=== PATIENT | female | born 1945 | race Caucasian/White ===

== ENCOUNTER 2023-06-07 07:37 | Observation (INO) ==
[2023-06-07 08:05] LABS: ABS Basophils 0.1 10^3/uL (0.0-0.1); ABS Lymphocytes 1.2 10^3/uL (1.0-4.8); ABS Monocytes 0.7 10^3/uL (0.0-0.9); ABS Neutrophils 8.5 10^3/uL (1.5-7.6); ABS Nucleated RBC 0.01 10^3/ul; Eosinophil % 0.1 %; Hemoglobin 16.1 g/dL (11.5-14.3); Mean Corpuscular Hemoglobin 31.7 pg (27-33); Mean Corpuscular Hgb Conc 34.2 g/dL (31-36); Mean Corpuscular Volume 92.7 fL (80-97); Mean Platelet Volume 9.7 fL (7.5-11.2); Platelet Count 319 10^3/uL (150-450); Red Blood Count 5.08 10^6/uL (3.63-4.92); Red Cell Distribution Width 13.3 % (12-17); White Blood Count 10.5 10^3/uL (3.8-11.8)
[2023-06-07] MEDS: methylPREDNISolone SOD SUCC 40 mg/ml 1 ml VIAL IV ONE (08:09)
[2023-06-07 08:24] LABS: Albumin 3.9 g/dL (3.2-5.2); Albumin/Globulin Ratio 1.1 (1-3); C Reactive Protein 3.88 mg/L (<8.01); Calcium 9.6 mg/dL (8.6-10.3); Creatinine, Serum 1.06 mg/dL (0.51-0.95); Globulin 3.6 g/dL (2-4); Potassium 3.7 mmol/L (3.5-5.0); Total Bilirubin 0.5 mg/dL (0.2-1.0); Total Protein 7.5 g/dL (6.4-8.9); eGFR CKD-EPI 54.4 (>60)
[2023-06-07] MEDS: Albuterol/Ipratropium NEB.SOL (2.5/0.5 MG) 3 ML NEB.SOLN INH ONE ×4 (08:45→10:39)
[2023-06-07 10:13] LABS: High Sensitivity Troponin 1 Hr 10 pg/mL (<15)
[2023-06-07] MEDS ORDERED: Albuterol/Ipratropium NEB.SOL (2.5/0.5 MG) 3 ML NEB.SOLN INH PRN (11:33)
[2023-06-07] MEDS: cefTRIAXone 1 gm/50 mL D5W 1 GM/50 ML BAG IV ONE (11:40)
[2023-06-07] MEDS ORDERED: Enoxaparin 30 MG/0.3 ML SYR SUBCUT SCH (12:30)
[2023-06-07] MEDS: Azithromycin 500 mg/250 ml NS 500 MG/250 ML BAG IVPB ONE (12:43)
[2023-06-07] MEDS: Enoxaparin 30 MG/0.3 ML SYR SUBCUT SCH (12:44)
[2023-06-07] MEDS: methylPREDNISolone SOD SUCC 125 mg 2 ML VIAL IV ONE (12:44)
[2023-06-07] MEDS: Albuterol/Ipratropium NEB.SOL (2.5/0.5 MG) 3 ML NEB.SOLN INH SCH (15:10)
[2023-06-07] MEDS: methylPREDNISolone SOD SUCC 40 mg/ml 1 ml VIAL IV SCH (20:44)
[2023-06-08] MEDS: Nicotine PATCH 21 MG/24 HR PATCH TRANSDERM SCH (08:09)
[2023-06-08 09:39] VITALS: BP 120/70
[2023-06-08] MEDS: SPIRIVA Respimat (tiotropium) 2.5 mcg/inh Inhaler INH SCH (09:45)
[2023-06-08] MEDS ORDERED: cefTRIAXone 1 gm/50 mL D5W 1 GM/50 ML BAG IV SCH ×2 (11:30)
[2023-06-08] MEDS ORDERED: Azithromycin 500 mg/250 ml NS 500 MG/250 ML BAG IVPB SCH ×2 (12:00)
== END 2023-06-08 12:30 | disposition home or self-care (01) ==
LOC: EDHOLD 07:37 → ED 07:37 → MED 20:34
PROVIDERS: ADMIT Hospitalist; ATTEND Hospitalist

== ENCOUNTER 2024-01-24 22:20 | Inpatient (IN) ==
[2024-01-24 23:15] LABS: ABS Basophils 0.1 10^3/uL (0.0-0.1); ABS Eosinophils 0.1 10^3/uL (0.0-0.5); ABS Lymphocytes 1.1 10^3/uL (1.0-4.8); ABS Monocytes 1.1 10^3/uL (0.0-0.9); ABS Neutrophils 8.1 10^3/uL (1.5-7.6); ABS Nucleated RBC 0.01 10^3/ul; Eosinophil % 0.8 %; Hematocrit 31.6 % (35-45); Hemoglobin 10.6 g/dL (11.5-14.3); Lymphocyte % 10.9 %; Mean Corpuscular Hemoglobin 32.5 pg (27-33); Mean Corpuscular Hgb Conc 33.6 g/dL (31-36); Mean Corpuscular Volume 96.9 fL (80-97); Nucleated Red Blood Cells % 0.1 %/100WBC (0.0-0.8); Platelet Count 427 10^3/uL (150-450); Red Blood Count 3.26 10^6/uL (3.63-4.92); Red Cell Distribution Width 15.2 % (12-17); White Blood Count 10.5 10^3/uL (3.8-11.8)
[2024-01-25 00:27] LABS: Albumin 3.5 g/dL (3.2-5.2); Albumin/Globulin Ratio 1.2 (1-3); C Reactive Protein 16.5 mg/L (<8.01); Calcium 9.1 mg/dL (8.6-10.3); Creatinine, Serum 1.03 mg/dL (0.51-0.95); Potassium 3.5 mmol/L (3.5-5.0); Total Bilirubin 0.5 mg/dL (0.2-1.0); Total Protein 6.5 g/dL (6.4-8.9)
[2024-01-25 00:52] LABS: High Sensitivity Troponin 1 Hr 18 pg/mL (<15)
[2024-01-25] MEDS: Albuterol/Ipratropium NEB.SOL (2.5/0.5 MG) 3 ML NEB.SOLN INH ONE (01:45)
[2024-01-25] MEDS: methylPREDNISolone SOD SUCC 125 mg 2 ML VIAL IV ONE (01:46)
[2024-01-25] MEDS: Albuterol/Ipratropium NEB.SOL (2.5/0.5 MG) 3 ML NEB.SOLN INH PRN (02:41)
[2024-01-25] MEDS: Iodixanol (CONTRAST) 320 MG/ML 100 ML SDV IV ONE (03:08)
[2024-01-25] MEDS: cefTRIAXone 1 gm/50 mL D5W 1 GM/50 ML BAG IV SCH (05:21)
[2024-01-25] MEDS: Azithromycin 250 MG in NS 0.9% 250 ml 250 ML IVPB SCH (06:33)
[2024-01-25 06:49] LABS: Urine Appearance Clear; Urine Bilirubin Negative (Negative); Urine Blood Negative (Negative); Urine Color Yellow; Urine Glucose Negative (Negative); Urine Ketones Negative (Negative); Urine Nitrite Negative (Negative); Urine Protein Trace (Negative); Urine Specific Gravity 1.023 (1.002-1.030); Urine Urobilinogen Negative (Negative); Urine pH 5.5 (5.0-8.0)
[2024-01-25] MEDS: Albuterol/Ipratropium NEB.SOL (2.5/0.5 MG) 3 ML NEB.SOLN INH SCH (08:06)
[2024-01-25] MEDS: DOXYcycline 100 MG in NS 0.9% 250 ml 250 ML IVPB SCH ×2 (09:15→20:04)
[2024-01-25] MEDS: Heparin 5000 UNITS/ML 1 mL VIAL SUBCUT SCH (09:15)
[2024-01-25 09:53] LABS: ABS Lymphocytes 0.2 10^3/uL (1.0-4.8); ABS Monocytes 0.1 10^3/uL (0.0-0.9); ABS Neutrophils 5.3 10^3/uL (1.5-7.6); ABS Nucleated RBC 0.01 10^3/ul; Hematocrit 20.9 % (35-45); Mean Corpuscular Hemoglobin 33.1 pg (27-33); Mean Corpuscular Hgb Conc 33.3 g/dL (31-36); Mean Corpuscular Volume 99.5 fL (80-97); Mean Platelet Volume 8.5 fL (7.5-11.2); Nucleated Red Blood Cells % 0.1 %/100WBC (0.0-0.8); Platelet Count 266 10^3/uL (150-450); Red Cell Distribution Width 14.6 % (12-17); White Blood Count 5.5 10^3/uL (3.8-11.8)
[2024-01-25 10:11] LABS: Calcium 5.4 mg/dL (8.6-10.3); Creatinine, Serum 0.58 mg/dL (0.51-0.95); Magnesium 1.2 mg/dL (1.9-2.7); Potassium 2.5 mmol/L (3.5-5.0); eGFR CKD-EPI 93.1 (>60)
[2024-01-25 12:40] LABS: Calcium 9.1 mg/dL (8.6-10.3); Creatinine, Serum 0.9 mg/dL (0.51-0.95); Potassium 3.9 mmol/L (3.5-5.0); eGFR CKD-EPI 65.8 (>60)
[2024-01-25 12:56] LABS: ABS Lymphocytes 0.3 10^3/uL (1.0-4.8); ABS Monocytes 0.1 10^3/uL (0.0-0.9); ABS Neutrophils 6.5 10^3/uL (1.5-7.6); Hematocrit 30.1 % (35-45); Hemoglobin 10.1 g/dL (11.5-14.3); Lymphocyte % 3.8 %; Mean Corpuscular Hemoglobin 32.6 pg (27-33); Mean Corpuscular Hgb Conc 33.5 g/dL (31-36); Mean Corpuscular Volume 97.4 fL (80-97); Mean Platelet Volume 8.9 fL (7.5-11.2); Platelet Count 373 10^3/uL (150-450); Red Blood Count 3.09 10^6/uL (3.63-4.92); White Blood Count 6.9 10^3/uL (3.8-11.8)
[2024-01-25] MEDS: methylPREDNISolone SOD SUCC 40 mg/ml 1 ml VIAL IV SCH (16:37)
[2024-01-25] MEDS: Heparin DRIP 25,000 UNITS BAG 25,000 UNITS/250 ML BAG IV SCH (16:38)
[2024-01-25] MEDS: Heparin 5000 UNITS/ML 1 mL VIAL IV SCH (16:43)
[2024-01-25 18:27] LABS: Magnesium 1.9 mg/dL (1.9-2.7)
[2024-01-25] MEDS: Mometasone/Formoter 100/5 MDI INH SCH (19:41)
[2024-01-25] MEDS: HYDROcodone/ACETAMIN 5/325 mg TAB PO PRN (23:19)
[2024-01-26 05:48] LABS: ABS Lymphocytes 0.6 10^3/uL (1.0-4.8); ABS Monocytes 0.7 10^3/uL (0.0-0.9); ABS Neutrophils 13.2 10^3/uL (1.5-7.6); Hematocrit 25.3 % (35-45); Hemoglobin 8.4 g/dL (11.5-14.3); Lymphocyte % 3.8 %; Mean Corpuscular Hemoglobin 32.4 pg (27-33); Mean Corpuscular Hgb Conc 33.2 g/dL (31-36); Mean Corpuscular Volume 97.5 fL (80-97); Mean Platelet Volume 9.1 fL (7.5-11.2); Platelet Count 330 10^3/uL (150-450); Red Cell Distribution Width 14.4 % (12-17); White Blood Count 14.5 10^3/uL (3.8-11.8)
[2024-01-26 07:18] LABS: Anion Gap 8 mmol/L (2-16); Blood Urea Nitrogen 20 mg/dL (6-24); CO2 Carbon Dioxide 28 mmol/L (22-32); Calcium 8.7 mg/dL (8.6-10.3); Chloride 104 mmol/L (101-111); Creatinine, Serum 0.66 mg/dL (0.51-0.95); Glucose 130 mg/dL (70-100); Sodium 140 mmol/L (135-145); eGFR CKD-EPI 90.3 (>60)
[2024-01-26] MEDS ORDERED: Heparin 2 UNITS/ML IVPREMIX 3,000 UNIT/1,500 ML BAG IV ONE (07:47)
[2024-01-26] MEDS ORDERED: Lidocaine 1% VIAL 10 MG/ML 30 ML VIAL ONE (07:47)
[2024-01-26] MEDS ORDERED: Iohexol 350 (CONTRAST) 100 ML PAK IV ONE ×2 (07:47→08:43)
[2024-01-26] MEDS ORDERED: Midazolam 5 mg/5 ml VIAL 1 mg/ml 5 ml VIAL (5 mg) ONE (08:01)
[2024-01-26] MEDS ORDERED: Heparin 1,000 UNIT/ML 10 ml (10,000 UNITS) CATHLAB/DIALYSIS ONE ×2 (08:01→10:34)
[2024-01-26] MEDS ORDERED: fentaNYL 100 mcg/2 ml 50 MCG/ML VIAL ONE ×2 (08:01→09:56)
[2024-01-26 08:20] LABS: Magnesium 1.9 mg/dL (1.9-2.7)
[2024-01-26] MEDS ORDERED: Heparin 2 UNITS/ML IVPREMIX 1,000 UNIT/500 ML BAG IV ONE ×3 (09:08→10:48)
[2024-01-26] MEDS: Furosemide 20 mg/2 ml IV VIAL IV SLOW PU ONE (13:35)
[2024-01-26] MEDS: Morphine 2 MG/ML SYRINGE IV ONE (18:30)
[2024-01-26] MEDS: Morphine 2 MG/ML SYRINGE ONE (18:30)
[2024-01-26 18:43] LABS: PCO2 Arterial 51 mmHg (35-45); PO2 Arterial 113 mmHg (80-100)
[2024-01-27 06:05] LABS: ABS Lymphocytes 0.8 10^3/uL (1.0-4.8); Hematocrit 25.3 % (35-45); Hemoglobin 8.4 g/dL (11.5-14.3); Mean Corpuscular Hemoglobin 31.8 pg (27-33); Mean Corpuscular Hgb Conc 33.1 g/dL (31-36); Mean Corpuscular Volume 96.3 fL (80-97); Mean Platelet Volume 9.3 fL (7.5-11.2); Platelet Count 321 10^3/uL (150-450); Red Blood Count 2.63 10^6/uL (3.63-4.92); Red Cell Distribution Width 14.4 % (12-17); White Blood Count 13.9 10^3/uL (3.8-11.8)
[2024-01-27 06:31] LABS: Calcium 8.6 mg/dL (8.6-10.3); Creatinine, Serum 0.64 mg/dL (0.51-0.95); Magnesium 1.8 mg/dL (1.9-2.7); Phosphorus 3.1 mg/dL (2.5-5.0); Potassium 3.4 mmol/L (3.5-5.0)
[2024-01-27] MEDS: Magnesium Sulfate 2 gm BAG 2 GM/50 ML BAG IVPB ONE (09:07)
[2024-01-27] MEDS: Potassium Chlor 20 meq TAB.ER PO ONE (09:10)
[2024-01-27] MEDS ORDERED: Albuterol/Ipratropium NEB.SOL (2.5/0.5 MG) 3 ML NEB.SOLN INH PRN (09:39)
[2024-01-27] MEDS ORDERED: Albuterol/Ipratropium NEB.SOL (2.5/0.5 MG) 3 ML NEB.SOLN INH SCH (10:00)
[2024-01-27] MEDS: Albuterol/Ipratropium NEB.SOL (2.5/0.5 MG) 3 ML NEB.SOLN INH SCH (10:30)
[2024-01-27] MEDS: Morphine 2 MG/ML SYRINGE IV ONE ×2 (15:40→20:49)
[2024-01-27] MEDS: Morphine 2 MG/ML SYRINGE ONE (22:10)
[2024-01-28 04:47] LABS: ABS Lymphocytes 0.6 10^3/uL (1.0-4.8); ABS Monocytes 0.8 10^3/uL (0.0-0.9); ABS Neutrophils 11.4 10^3/uL (1.5-7.6); Hematocrit 28.3 % (35-45); Hemoglobin 9.4 g/dL (11.5-14.3); Lymphocyte % 4.8 %; Mean Corpuscular Hemoglobin 32.1 pg (27-33); Mean Corpuscular Hgb Conc 33.1 g/dL (31-36); Mean Corpuscular Volume 97.2 fL (80-97); Mean Platelet Volume 9.3 fL (7.5-11.2); Platelet Count 340 10^3/uL (150-450); Red Blood Count 2.91 10^6/uL (3.63-4.92); Red Cell Distribution Width 14.5 % (12-17); White Blood Count 12.8 10^3/uL (3.8-11.8)
[2024-01-28 05:24] LABS: Creatinine, Serum 0.73 mg/dL (0.51-0.95); Magnesium 2.3 mg/dL (1.9-2.7); Phosphorus 2.6 mg/dL (2.5-5.0); Potassium 4.7 mmol/L (3.5-5.0); eGFR CKD-EPI 84.6 (>60)
[2024-01-28] MEDS: Albuterol/Ipratropium NEB.SOL (2.5/0.5 MG) 3 ML NEB.SOLN INH PRN (08:12)
[2024-01-28] MEDS ORDERED: Sulfur Hexaflouride MICROSPHR 25 MG VIAL IV PRN (12:36)
[2024-01-28] MEDS: Furosemide 20 mg/2 ml IV VIAL IV SLOW PU ONE (13:19)
[2024-01-28] MEDS: Morphine 2 MG/ML SYRINGE IV ONE (18:58)
[2024-01-28] MEDS: methylPREDNISolone SOD SUCC 40 mg/ml 1 ml VIAL IV SCH (21:07)
[2024-01-29 04:16] LABS: ABS Lymphocytes 0.4 10^3/uL (1.0-4.8); ABS Monocytes 0.3 10^3/uL (0.0-0.9); ABS Neutrophils 9.2 10^3/uL (1.5-7.6); ABS Nucleated RBC 0.01 10^3/ul; Hemoglobin 8.5 g/dL (11.5-14.3); Lymphocyte % 3.9 %; Mean Corpuscular Hemoglobin 31.5 pg (27-33); Mean Corpuscular Hgb Conc 32.6 g/dL (31-36); Mean Corpuscular Volume 96.7 fL (80-97); Mean Platelet Volume 9.6 fL (7.5-11.2); Nucleated Red Blood Cells % 0.1 %/100WBC (0.0-0.8); Platelet Count 319 10^3/uL (150-450); Red Blood Count 2.68 10^6/uL (3.63-4.92); Red Cell Distribution Width 14.6 % (12-17); White Blood Count 9.8 10^3/uL (3.8-11.8)
[2024-01-29 05:29] LABS: Calcium 8.5 mg/dL (8.6-10.3); Creatinine, Serum 0.63 mg/dL (0.51-0.95); Magnesium 1.9 mg/dL (1.9-2.7); Phosphorus 3.6 mg/dL (2.5-5.0); Potassium 5.1 mmol/L (3.5-5.0); eGFR CKD-EPI 91.3 (>60)
[2024-01-29] MEDS: methylPREDNISolone SOD SUCC 40 mg/ml 1 ml VIAL IV SCH (14:48)
[2024-01-29] MEDS ORDERED: Magnesium Hydroxide LIQ 30 ML UDC PO PRN (17:48)
[2024-01-29] MEDS: Albuterol/Ipratropium NEB.SOL (2.5/0.5 MG) 3 ML NEB.SOLN INH SCH (18:58)
[2024-01-30 06:23] LABS: ABS Lymphocytes 0.4 10^3/uL (1.0-4.8); ABS Monocytes 0.3 10^3/uL (0.0-0.9); ABS Neutrophils 7.8 10^3/uL (1.5-7.6); Hematocrit 26.6 % (35-45); Hemoglobin 8.9 g/dL (11.5-14.3); Lymphocyte % 5.2 %; Mean Corpuscular Hemoglobin 32.5 pg (27-33); Mean Corpuscular Hgb Conc 33.4 g/dL (31-36); Mean Corpuscular Volume 97.2 fL (80-97); Mean Platelet Volume 9.2 fL (7.5-11.2); Platelet Count 306 10^3/uL (150-450); Red Blood Count 2.74 10^6/uL (3.63-4.92); Red Cell Distribution Width 14.2 % (12-17); White Blood Count 8.5 10^3/uL (3.8-11.8)
[2024-01-30 06:38] LABS: Calcium 8.9 mg/dL (8.6-10.3); Creatinine, Serum 0.68 mg/dL (0.51-0.95); Magnesium 1.8 mg/dL (1.9-2.7); Potassium 5.3 mmol/L (3.5-5.0); eGFR CKD-EPI 89.6 (>60)
[2024-01-30] MEDS: Magnesium Sulfate 2 gm BAG 2 GM/50 ML BAG IVPB ONE (09:42)
[2024-01-30] MEDS: Enoxaparin 40 MG/0.4 ML SYR SUBCUT SCH (17:36)
[2024-01-31] MEDS: cefTRIAXone ADVAN VIAL 1 GM in NS 0.9% 50 ML 50 ML IVPB SCH (05:32)
[2024-01-31 08:24] LABS: ABS Lymphocytes 0.6 10^3/uL (1.0-4.8); ABS Monocytes 0.4 10^3/uL (0.0-0.9); ABS Neutrophils 8.7 10^3/uL (1.5-7.6); Hematocrit 28.6 % (35-45); Hemoglobin 9.6 g/dL (11.5-14.3); Mean Corpuscular Hemoglobin 32.6 pg (27-33); Mean Corpuscular Hgb Conc 33.7 g/dL (31-36); Mean Corpuscular Volume 96.7 fL (80-97); Mean Platelet Volume 9.7 fL (7.5-11.2); Platelet Count 336 10^3/uL (150-450); Red Blood Count 2.96 10^6/uL (3.63-4.92); Red Cell Distribution Width 14.3 % (12-17); White Blood Count 9.6 10^3/uL (3.8-11.8)
[2024-01-31 08:31] LABS: Calcium 8.7 mg/dL (8.6-10.3); Creatinine, Serum 0.68 mg/dL (0.51-0.95); Magnesium 2.1 mg/dL (1.9-2.7); Potassium 4.9 mmol/L (3.5-5.0); eGFR CKD-EPI 89.6 (>60)
[2024-01-31] MEDS: Nicotine PATCH 21 MG/24 HR PATCH TRANSDERM SCH (18:16)
[2024-01-31] MEDS: Amoxicillin/Clavul 500/125 TAB (Augmentin 500 mg tab) PO SCH (20:14)
[2024-02-01 12:41] LABS: Rapid COVID-19 Molecular Undetected (Undetected)
[2024-02-01 13:15] VITALS: BP 137/65
== END 2024-02-01 13:30 | DRG 166 ==
LOC: ED 22:20 → EDHOLD 01-25 04:09 → ICU 01-25 07:53 → MEDTELE 01-29 05:10
PROVIDERS: ADMIT Internal Medicine; ATTEND Internal Medicine

== ENCOUNTER 2024-02-27 08:33 | Inpatient (IN) ==
[2024-02-27] MEDS: LACTATED RINGERS IV ONE (09:00)
[2024-02-27] MEDS ORDERED: Albuterol/Ipratropium NEB.SOL (2.5/0.5 MG) 3 ML NEB.SOLN ONE (09:01)
[2024-02-27] MEDS: Piperacillin/Tazobac 3.375 BAG 3.375 GM/100 ML BAG IV ONE (09:16)
[2024-02-27 09:18] LABS: ABS Basophils 0.1 10^3/uL (0.0-0.1); ABS Monocytes 0.9 10^3/uL (0.0-0.9); ABS Neutrophils 9.1 10^3/uL (1.5-7.6); ABS Nucleated RBC 0.01 10^3/ul; Eosinophil % 0.2 %; Hematocrit 28.7 % (35-45); Hemoglobin 9.3 g/dL (11.5-14.3); Mean Corpuscular Hgb Conc 32.5 g/dL (31-36); Mean Corpuscular Volume 95.5 fL (80-97); Mean Platelet Volume 9.6 fL (7.5-11.2); Platelet Count 321 10^3/uL (150-450); Red Cell Distribution Width 14.6 % (12-17); White Blood Count 11.1 10^3/uL (3.8-11.8)
[2024-02-27 09:36] LABS: INR 1.1 (0.85-1.14)
[2024-02-27] MEDS: fentaNYL 100 mcg/2 ml 50 MCG/ML VIAL IV SLOW PU ONE ×3 (09:40→20:38)
[2024-02-27] MEDS: Acetaminophen IV 1 GM/100ML 500 MG/50 ML BAG IV ONE (09:43)
[2024-02-27 10:11] LABS: Albumin 2.8 g/dL (3.2-5.2); Albumin/Globulin Ratio 1.1 (1-3); C Reactive Protein 122.88 mg/L (<8.01); Calcium 8.6 mg/dL (8.6-10.3); Creatinine, Serum 0.61 mg/dL (0.51-0.95); Globulin 2.5 g/dL (2-4); Potassium 4.3 mmol/L (3.5-5.0); Total Bilirubin 0.4 mg/dL (0.2-1.0); Total Protein 5.3 g/dL (6.4-8.9)
[2024-02-27] MEDS: Albuterol/Ipratropium NEB.SOL (2.5/0.5 MG) 3 ML NEB.SOLN INH PRN (10:34)
[2024-02-27] MEDS: Vancomycin 750 MG in NS 0.9% 250 ml 250 ML IVPB ONE (10:43)
[2024-02-27 10:49] LABS: High Sensitivity Troponin 1 Hr 22 pg/mL (<15)
[2024-02-27] MEDS ORDERED: Albuterol/Ipratropium NEB.SOL (2.5/0.5 MG) 3 ML NEB.SOLN INH PRN (15:00)
[2024-02-27] MEDS ORDERED: Albuterol HFA INHALER 8 gm MDI INH PRN (15:00)
[2024-02-27] MEDS: Enoxaparin 30 MG/0.3 ML SYR SUBCUT SCH (16:56)
[2024-02-27 19:45] LABS: Venous Bicarbonate HCO3 29.3 mmol/L (24-28)
[2024-02-27] MEDS: fentaNYL 100 mcg/2 ml 50 MCG/ML VIAL ONE ×2 (20:01→20:37)
[2024-02-27 20:07] LABS: Urine Appearance Turbid; Urine Bilirubin Negative (Negative); Urine Blood Negative (Negative); Urine Color Yellow; Urine Glucose Negative (Negative); Urine Ketones Trace (Negative); Urine Nitrite Negative (Negative); Urine Protein Trace (Negative); Urine Specific Gravity 1.028 (1.002-1.030); Urine Urobilinogen Negative (Negative)
[2024-02-27] MEDS: Amoxicillin/Clavul 500/125 TAB (Augmentin 500 mg tab) PO SCH (20:11)
[2024-02-27 20:18] LABS: Urine Bacteria Absent /HPF (Absent); Urine Red Blood Cell 1+(3-5/hpf) /HPF (0-Trace); Urine Uric Acid Crystals Present /HPF (Absent); Urine White Blood Cell Trace(0-5/hpf) /HPF (0-Trace)
[2024-02-27 20:51] LABS: Calcium 8.5 mg/dL (8.6-10.3); Creatinine, Serum 0.56 mg/dL (0.51-0.95); Magnesium 1.8 mg/dL (1.9-2.7); Phosphorus 3.4 mg/dL (2.5-5.0); Potassium 4.3 mmol/L (3.5-5.0); eGFR CKD-EPI 93.9 (>60)
[2024-02-27] MEDS: Magnesium Sulfate 2 gm BAG 2 GM/50 ML BAG IVPB ONE (21:41)
[2024-02-28 04:16] LABS: ABS Lymphocytes 0.9 10^3/uL (1.0-4.8); ABS Monocytes 0.8 10^3/uL (0.0-0.9); ABS Neutrophils 12.8 10^3/uL (1.5-7.6); ABS Nucleated RBC 0.01 10^3/ul; Eosinophil % 0.1 %; Hematocrit 30.8 % (35-45); Hemoglobin 9.7 g/dL (11.5-14.3); Lymphocyte % 6.1 %; Mean Corpuscular Hemoglobin 30.1 pg (27-33); Mean Corpuscular Hgb Conc 31.5 g/dL (31-36); Mean Corpuscular Volume 95.5 fL (80-97); Mean Platelet Volume 9.5 fL (7.5-11.2); Platelet Count 334 10^3/uL (150-450); Red Blood Count 3.23 10^6/uL (3.63-4.92); Red Cell Distribution Width 14.5 % (12-17); White Blood Count 14.5 10^3/uL (3.8-11.8)
[2024-02-28 04:50] LABS: Calcium 8.9 mg/dL (8.6-10.3); Creatinine, Serum 0.61 mg/dL (0.51-0.95); Magnesium 2.6 mg/dL (1.9-2.7); Potassium 4.7 mmol/L (3.5-5.0)
[2024-02-28] MEDS: FLUTICAS/UMECLI/VILANT 100-62.5-25 MDI (NF) INH SCH (07:00)
[2024-02-28 08:14] LABS: C Reactive Protein 126.14 mg/L (<8.01)
[2024-02-28] MEDS: Nicotine PATCH 21 MG/24 HR PATCH TRANSDERM SCH (09:00)
[2024-02-28] MEDS: Pantoprazole VIAL 40 MG VIAL IV SCH ×2 (10:37→20:07)
[2024-02-28] MEDS: cefTRIAXone 1 gm/50 mL D5W 1 GM/50 ML BAG IV SCH (10:37)
[2024-02-28] MEDS ORDERED: Polyethylene Glycol 3350 17 GM PACKET PO PRN (11:52)
[2024-02-28] MEDS: Azithromycin 500 mg/250 ml NS 500 MG/250 ML BAG IVPB SCH ×2 (11:53→12:09)
[2024-02-28] MEDS: Senna TAB 8.6 mg TAB PO SCH (12:56)
[2024-02-28] MEDS: Furosemide 40 mg/4 ml IV VIAL IV ONE (13:27)
[2024-02-28] MEDS: Tranexamic Acid 1,000 MG/10 ML SDV INH SCH ×2 (14:03→14:14)
[2024-02-28 15:46] LABS: Activated Partial Thrombo Time 26.9 seconds (26.0-38.0); INR 1.06 (0.85-1.14)
[2024-02-28 15:56] LABS: Platelet Count 358 10^3/ul (150-450)
[2024-02-28 16:19] LABS: Schistocytes ABSENT
[2024-02-28] MEDS: Iohexol 350 (CONTRAST) 500 ML MDV IV ONE (17:02)
[2024-02-28] MEDS ORDERED: Lorazepam PYXIS KEY PRN (17:58)
[2024-02-28] MEDS: LORazepam 2 mg VIAL 1 ml IV PUSH PRN (18:32)
[2024-02-29 08:01] LABS: ABS Lymphocytes 1.2 10^3/uL (1.0-4.8); ABS Monocytes 0.9 10^3/uL (0.0-0.9); ABS Neutrophils 11.5 10^3/uL (1.5-7.6); ABS Nucleated RBC 0.04 10^3/ul; Hematocrit 29.7 % (35-45); Hemoglobin 9.3 g/dL (11.5-14.3); Lymphocyte % 8.8 %; Mean Corpuscular Hemoglobin 29.9 pg (27-33); Mean Corpuscular Hgb Conc 31.3 g/dL (31-36); Mean Corpuscular Volume 95.5 fL (80-97); Mean Platelet Volume 9.6 fL (7.5-11.2); Nucleated Red Blood Cells % 0.3 %/100WBC (0.0-0.8); Platelet Count 390 10^3/uL (150-450); Red Cell Distribution Width 14.1 % (12-17); White Blood Count 13.7 10^3/uL (3.8-11.8)
[2024-02-29 08:12] LABS: Calcium 8.6 mg/dL (8.6-10.3); Magnesium 2.3 mg/dL (1.9-2.7); Potassium 4.8 mmol/L (3.5-5.0)
[2024-02-29] MEDS: Heparin 5000 UNITS/ML 1 mL VIAL SUBCUT SCH (09:17)
[2024-02-29] MEDS: Polyethylene Glycol 3350 17 GM PACKET PO SCH (09:23)
[2024-02-29] MEDS: Morphine 2 MG/ML SYRINGE IV PRN (18:19)
[2024-03-01 04:37] LABS: ABS Lymphocytes 0.9 10^3/uL (1.0-4.8); ABS Monocytes 0.7 10^3/uL (0.0-0.9); ABS Neutrophils 11.1 10^3/uL (1.5-7.6); ABS Nucleated RBC 0.02 10^3/ul; Hematocrit 25.8 % (35-45); Hemoglobin 8.4 g/dL (11.5-14.3); Lymphocyte % 7.1 %; Mean Corpuscular Hemoglobin 30.5 pg (27-33); Mean Corpuscular Hgb Conc 32.6 g/dL (31-36); Mean Corpuscular Volume 93.7 fL (80-97); Mean Platelet Volume 9.4 fL (7.5-11.2); Nucleated Red Blood Cells % 0.2 %/100WBC (0.0-0.8); Platelet Count 350 10^3/uL (150-450); Red Blood Count 2.76 10^6/uL (3.63-4.92); White Blood Count 12.8 10^3/uL (3.8-11.8)
[2024-03-01 05:25] LABS: Calcium 8.5 mg/dL (8.6-10.3); Creatinine, Serum 1.04 mg/dL (0.51-0.95); Magnesium 2.2 mg/dL (1.9-2.7); Potassium 4.6 mmol/L (3.5-5.0); eGFR CKD-EPI 55.4 (>60)
[2024-03-01 10:13] LABS: TSH Ultra Thyroid Stim Horm 0.17 mcIU/mL (0.34-5.60)
[2024-03-01 10:55] LABS: Free T3 2.12 pg/mL (2.5-3.9); Free T4 0.92 ng/dL (0.61-1.12)
[2024-03-01 10:56] LABS: Venous Bicarbonate HCO3 35.8 mmol/L (24-28)
[2024-03-01] MEDS: Naloxone 0.4 mg VIAL 0.4 mg/ml 1 ml VIAL IV PUSH SCH (11:03)
[2024-03-01] MEDS: Lactated Ringers 1000 ml BAG 1,000 ML IV SCH (11:16)
[2024-03-01] MEDS: DOXYcycline 100 MG in NS 0.9% 250 ml 250 ML IVPB SCH (11:46)
[2024-03-01 14:19] LABS: Hematocrit 25.7 % (35-45); Hemoglobin 8.4 g/dL (11.5-14.3); Mean Corpuscular Hemoglobin 30.6 pg (27-33); Mean Corpuscular Hgb Conc 32.6 g/dL (31-36); Mean Platelet Volume 9.6 fL (7.5-11.2); Platelet Count 346 10^3/uL (150-450); Red Blood Count 2.74 10^6/uL (3.63-4.92); Red Cell Distribution Width 14.1 % (12-17); White Blood Count 14.9 10^3/uL (3.8-11.8)
[2024-03-01] MEDS: Tranexamic Acid 1,000 MG/10 ML SDV INH PRN (15:07)
[2024-03-01 18:05] LABS: HIV 4th Generation Nonreactive (Nonreactive)
[2024-03-01 18:23] LABS: Hepatitis B Surface Antigen Nonreactive (Nonreactive)
[2024-03-01 18:41] LABS: Hepatitis B Surface Ab Not Immune (Immune); Hepatitis C Antibody Negative (Negative)
[2024-03-01] MEDS: Morphine 2 MG/ML SYRINGE IV ONE (19:32)
[2024-03-01] MEDS: Albuterol/Ipratropium NEB.SOL (2.5/0.5 MG) 3 ML NEB.SOLN INH PRN (21:49)
[2024-03-01] MEDS: HYDROmorphone 0.5 MG/0.5 ML SYRINGE ONE (21:50)
[2024-03-01] MEDS: HYDROmorphone 0.5 MG/0.5 ML SYRINGE IV SLOW PU ONE (21:51)
[2024-03-02] MEDS ORDERED: HYDROmorphone 0.5 MG/0.5 ML SYRINGE IV SLOW PU PRN (02:53)
[2024-03-02] MEDS: Albuterol/Ipratropium NEB.SOL (2.5/0.5 MG) 3 ML NEB.SOLN INH SCH (09:56)
[2024-03-02] MEDS ORDERED: Albuterol/Ipratropium NEB.SOL (2.5/0.5 MG) 3 ML NEB.SOLN INH PRN (09:58)
[2024-03-02] MEDS ORDERED: LORazepam 2 mg VIAL 1 ml IV PUSH PRN (10:50)
[2024-03-02] MEDS ORDERED: Albuterol 2.5mg/3 ml (0.083%) NEB.SOLN INH ONE (11:10)
[2024-03-02] MEDS: HYDROmorphone 0.5 MG/0.5 ML SYRINGE IV SLOW PU PRN (15:35)
[2024-03-02] MEDS: Morphine ORAL CONCENTRATE 5 MG/0.25 ML ORAL.SYRIN SL PRN (22:04)
[2024-03-03 15:12] VITALS: BP 137/62
[2024-03-05] MEDS ORDERED: Atropine 1% (ORAL/SL) 15 ML BTL SL PRN (11:26)
== END 2024-03-05 14:01 | disposition expired | DRG 189 ==
LOC: EDACCT# → ED 08:33 → SUATTDRO 13:20 → EDHOLD 13:20 → ICU 13:51 → MED 03-03 16:53
PROVIDERS: ADMIT Internal Medicine; ATTEND Student in an Organized Health Care Education/Training Program